=== PATIENT | male | born 1985 | race Asian ===

== ENCOUNTER 2022-12-25 16:15 | Outpatient (CLI) | payer OTHER ==
--- NOTE | 2022-12-26 09:02 | MRI Report ---
PROCEDURE: SHOULDER WO - RT INDICATIONS: RIGHT SHOULDER PAIN TECHNIQUE: Noncontrast oblique coronal T2 fast spin echo with fat saturation, oblique sagittal T1 spin echo and T2 fast spin echo with fat saturation, axial T1 spin echo and T2 fast spin echo with fat saturation t hrough the shoulder. COMPARISON: None. FINDINGS: Image quality: Excellent. Rotator cuff: Mild T2 signal elevation diffusely throughout the supraspinatus and infraspinatus tend ons at the humeral insertion sites extending the muscular tendinous junctions, indicating tendinopath y. Low-grade articular surface and bursal surface tears of the mid and posterior supraspinatus tendon at the humeral insertion site extending to the muscular tendinous junction. Low-grade bursal surface tears of the anterior, mid, posterior infraspinatus tendon at the humeral insertion site extending t o the muscular tendinous junction. Subscapularis and teres minor tendons are intact. No rotator cuff atrophy. The supraspinatus, infraspinatus, and subscapularis tendons appear intact throughout. No ro tator cuff muscle atrophy on sagittal images. Bones and bursae: No bone marrow contusions or fractures. Mild glenohumeral and acromioclavicular quoc int degeneration. The acromion demonstrates conventional anatomy, without an os acromiale. No patho logic subacromial/subdeltoid bursal fluid is present. Capsule and soft tissues: In the absence of intra-articular contrast, the labrum and glenohumeral li gaments appear intact. The long head of the biceps tendon demonstrates normal location and morpholog y. The rotator interval appears normal, without fibrosis. The coracohumeral ligament is normal in t hickness. IMPRESSION: 1. 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 No full-thickness rotator cuff tear. 2. Acromioclavicular and glenohumeral joint osteoarthritis. Reviewed by: Robert Guallpa MD on 12/26/2022 9:01 AM PDT Approved by: Robert Guallpa MD on 12/26/2022 9:01 AM PDT Station ID: [id number]
== END 2022-12-25 16:16 | disposition home or self-care (01) ==
LOC: DI 16:15
PROVIDERS: ATTEND Student in an Organized Health Care Education/Training Program
DX: M75.111 Incomplete rotator cuff tear or rupture of right shoulder, not specified as traumatic (principal); M19.011 Primary osteoarthritis, right shoulder